=== PATIENT | female | born 1995 | race American Indian/Alaskan Native ===

== ENCOUNTER 2017-03-31 02:59 | Emergency (ER) | payer BC, OTHER ==
[~2017-03-31] VITALS: Ht 160 cm; Wt 55.3 kg
[~2017-03-31 02:59] MED LIST: SODIUM BICARBO650 MG PO; UROCIT-K10 MEQ PO
[2017-03-31] MEDS ORDERED: MULTI VITAMIN1 EACH PO (03:11)
[2017-03-31] MEDS ORDERED: ASPIR-LOW81 MG PO (03:12)
[2017-03-31] MEDS ORDERED: MACROBID 100 M100 MG PO (03:47)
[2017-07-10] MEDS ORDERED: POTASSIUM CITR10 MEQ PO ×2 (17:14→19:56)
[2017-07-10] MEDS ORDERED: PNV PRENATAL P1 EACH PO (17:15)
[2017-07-10] MEDS ORDERED: SODIUM BICARBO650 MG PO ×3 (18:09→19:56)
[2017-07-10] MEDS ORDERED: TYLENOL325 MG PO (18:12)
[2017-07-10] MEDS ORDERED: CYTRA PO (19:31)
== END 2017-03-31 03:55 | disposition home or self-care (01) ==
LOC: ED 02:59
DX: O23.42 Unspecified infection of urinary tract in pregnancy, second trimester (principal); Z88.0 Allergy status to penicillin; Z79.899 Other long term (current) drug therapy; Z79.82 Long term (current) use of aspirin; Z3A.20 20 weeks gestation of pregnancy
CPT/HCPCS: 81001; 87088; 99283

== ENCOUNTER 2017-07-26 21:45 | Inpatient (IN) | payer BC, OTHER ==
[~2017-07-26] VITALS: Ht 160 cm; Wt 64.0 kg
[~2017-07-26 21:45] MED LIST changes: +ASPIR-LOW81 MG PO; +CYTRA PO; +MACROBID 100 M100 MG PO; +MULTI VITAMIN1 EACH PO; +PNV PRENATAL P1 EACH PO; +POTASSIUM CITR10 MEQ PO; +TYLENOL325 MG PO
[2017-07-26] MEDS ORDERED: SODIUM BICARBO650 MG PO (23:27)
[2017-07-26] MEDS ORDERED: K-TAB ER20 MEQ PO (23:27)
--- NOTE | 2017-07-27 12:15 | EKG ---
[facility] [address] [facility] [place] [address] Signed Sinus tachycardia Right superior axis deviation Pulmonary disease pattern Abnormal ECG No previous ECGs available Confirmed by FRANKLYN WADE MD ([id number]) on 07/27/2017 12:14:49 PM Electronically Signed By: FRANKLYN WADE MD 07/27/17 1215 PATIENT NAME: KAYLEEN JENKINS Electrocardiogram DATE OF : [birth year] PHYSICIAN: FRANKLYN WADE MD REPORT #: [id number] REPORT IS CONFIDENTIAL AND NOT TO BE RELEASED WITHOUT AUTHORIZATION
== END 2017-07-28 16:08 | disposition home or self-care (01) | DRG 774 ==
LOC: FBCO 21:45 → FBC 22:14
PROVIDERS: ADMIT Obstetrics & Gynecology
PROC: 10E0XZZ Delivery of Products of Conception, External Approach (ICD-10-PCS; principal; 2017-07-27)
PROC: 0KQM0ZZ Repair Perineum Muscle, Open Approach (ICD-10-PCS; 2017-07-27)
PROC: 00HU33Z Insertion of Infusion Device into Spinal Canal, Percutaneous Approach (ICD-10-PCS; 2017-07-27)
PROC: 3E0R3BZ Introduction of Anesthetic Agent into Spinal Canal, Percutaneous Approach (ICD-10-PCS; 2017-07-27)
DX: O99.89 Other specified diseases and conditions complicating pregnancy, childbirth and the puerperium (principal); O72.1 Other immediate postpartum hemorrhage; D62 Acute posthemorrhagic anemia; N25.89 Other disorders resulting from impaired renal tubular function; M35.00 Sjogren syndrome, unspecified; O76 Abnormality in fetal heart rate and rhythm complicating labor and delivery; O70.1 Second degree perineal laceration during delivery; O90.81 Anemia of the puerperium; Z86.19 Personal history of other infectious and parasitic diseases; Z3A.37 37 weeks gestation of pregnancy; Z37.0 Single live birth
CPT/HCPCS: 01960; 36415; 80053; 85025; 85027; 85384; 85610; 85730; 86850; 86900; 86901; 93005; 93010; J2210; J2590; J3010; J7120

== ENCOUNTER 2017-11-13 09:03 | Inpatient (IN) | payer BC, OTHER ==
[~2017-11-13] VITALS: Ht 160 cm; Wt 51.3 kg
--- OUTSIDE RECORDS SUMMARY | ~2017-11-13 | XMS | Clinical Summary ---
Demographics + + + | Address | [address] | | | [place] [address] | + + + | Home Phone | | + + + | Preferred Language | Unknown | + + + | Marital Status | Unknown | + + + | Buddhism Affiliation | Unknown | + + + | Race | Unknown | + + + | Ethnic Group | Unknown | + + + Author + + + | Author | [facility] | + + + | Organization | [facility] | + + + | Address | Unknown | + + + | Phone | Unavailable | + + + Support + + + + + | Name | Relationship | Address | Phone | + + + + + | Contact,No | ECON | [address] | | | | | [place] | | | | | [phone] | | + + + + + Care Team Providers + +------+ + | Care Supervisor Prep Name | Role | Phone | + +------+ + | Fran Olivo | PP | | + +------+ + Allergies Not on File Current Medications Not on file Active Problems Not on file Social History + +-------+ +--------+------+ | Tobacco Use | Types | Packs/Day | Years | Date | | | | | Used | | + +-------+ +--------+------+ | Never Assessed | | | | | + +-------+ +--------+------+ + + + | Sex Assigned at | Date Recorded | | | | + + + | Not on file | | + + + Plan of Treatment + + + + + | Health Maintenance | Due Date | Last Done | Comments | + + + + + | Vaccine: HPV (1 of 3 | | | | | - Female 3-dose | 7 | | | | series) | | | | + + + + + | Vaccine: | | | | | Dtap/Tdap/Td (1 - | 5 | | | | Tdap) | | | | + + + + + | Cervical Cancer | | | | | Screening (Pap) | 7 | | | + + + + + | Vaccine: Influenza | | | | | (#1) | 8 | | | + + + + + Results Not on filefrom Last 3 Months Insurance + +--------+ +------+-------+ + | Payer | Benefi | Subscriber | Type | Phone | Address | | | t Plan | ID | | | | | | / | | | | | | | Group | | | | | + +--------+ +------+-------+ + | MEDICAID | MEDICA | [id number] | | | [address] | | | ID - | | | | [place], [place] | | | [place] | | | | [phone] | + +--------+ +------+-------+ + | [employer] | YELLOW | [phone] | | | | | PLANS | [place] | | | | | + +--------+ +------+-------+ + + +--------+ +--------+ + + | Guarantor Name | Accoun | Relation to | Date | Phone | Billing Address | | | t Type | Patient | of | | | | | | | | | | + +--------+ +--------+ + + | KAYLEEN JENKINS | Person | Self [birth year] | Home: | [address] [facility] | | [place] | [address] | | 1995 | [phone] | [place] | | | [place] | | | [phone] | [phone] | + +--------+ +--------+ + +"
--- OUTSIDE RECORDS SUMMARY | ~2017-11-13 | XMS | Clinical Summary ---
Demographics + + + | Address | [address] | | | [place] [address] | + + + | Home Phone | | + + + | Preferred Language | Unknown | + + + | Marital Status | Unknown | + + + | Advent Affiliation | Unknown | + + + | Race | Unknown | + + + | Ethnic Group | Unknown | + + + Author + + + | Author | [facility] | | | and [place] | + + + | Organization | [facility] | | | and [place] | + + + | Address | Unknown | + + + | Phone | Unavailable | + + + Care Team Providers + +------+ + | Care Tenant Selector Name | Role | Phone | + +------+ + | Fran Olivo PA-C | PP | | + +------+ + Allergies + + + + + + | Active Allergy | Reactions | Severity | Noted | Comments | | | | | Date | | + + + + + + | Amoxicillin | | | 02/27/19 | | | | | | 16 | | + + + + + + Current Medications + + +-------+---------+------+------+-------+ | Prescription | Sig. | Disp. | Refills | Star | End | Statu | | | | | | t | Date | s | | | | | | Date | | | + + +-------+---------+------+------+-------+ | sodium bicarbonate | Take 650 mg by mouth | | | | | Activ | | 650 mg tablet | 3 times daily. | | | | | e | + + +-------+---------+------+------+-------+ | potassium chloride | Take 20 mEq by mouth | | | | | Activ | | (K-DUR) 20 mEq ER | 2 times daily. | | | | | e | | tablet | | | | | | | + + +-------+---------+------+------+-------+ Active Problems + + + | Problem | Noted Date | + + + | Hypokalemia | 02/27/2015 | + + + | Non-traumatic rhabdomyolysis | 02/27/2015 | + + + | Distal renal tubular acidosis | 02/27/2015 | + + + Social History + +-------+ +--------+------+ | Tobacco [...] | Vaccine: HPV (1 of 3 | 05/20/200 | | | | - Female 3-dose [...] filefrom Last 3 Months Insurance + +--------+ +--------+ +---------+ | Payer | Benefi | Subscriber | Type | Phone | Address | | | t Plan | ID | | | | | | / | | | | | | | Group | | | | | + +--------+ +--------+ +---------+ | PREMERA | PREMER | [id number] | PPO | [phone] | | | | A | 1 | | [phone] | | | | [place]ITA | | | | | | | GE | | | | | | | PRIME | | | | | | | PPO | | | | | + +--------+ +--------+ +---------+ | [employer] | MODA | [id number] | Medica | [phone] | | | MEDICAID HMO | HEALTH | | id | 9821 | | | | MDCD | | | | | | | HMO [place] | | | | | + +--------+ +--------+ +---------+ + +--------+ +--------+ + + | Guarantor Name | Accoun | Relation to | Date | Phone | Billing Address | | | t Type | Patient | of | | | | | | | | | | + +--------+ +--------+ + + | KAYLEEN JENKINS | Person | Self | [birth year] | Home: | [address] | | [place] | [address] | | 1995 | [phone] | [place] [address] | | | [place] | | | [phone] | | + +--------+ +--------+ + +"
--- OUTSIDE RECORDS SUMMARY | ~2017-11-13 | XMS | Clinical Summary ---
Demographics + + + | Address | [address] | | | [place] [address] | + + + | Home Phone | | + + + | Preferred Language | Unknown | + + + | Marital Status | Unknown | + + + | Pentecostal Affiliation | Unknown | + + + | Race | Unknown | + + + | Ethnic Group | Unknown | + + + Author + + + | Author | [facility] | | | and [place] | + + + | Organization | [facility] | | | and [place] | + + + | Address | Unknown | + + + | Phone | Unavailable | + + + Care Team Providers + +------+ + | Care Medical Staff Physician Name | Role | Phone | + [...] +--------+ +---------+ | PREMERA | PREMER | [id number] | PPO | [phone] | | | | A | 1 | | [phone] | | | | HERITA | | | | | | | GE | | | | | | | PRIME | | | | | | | PPO | | | | | + +--------+ +--------+ +---------+ | [employer]AN | MODA | [id number] | Medica | [phone] | | | MEDICAID HMO | HEALTH [...] | 1995 | [phone] | [place] [address] | | | [place] | | | [phone] | | + +--------+ +--------+ + +"
--- OUTSIDE RECORDS SUMMARY | ~2017-11-13 | XMS | Clinical Summary ---
Demographics + + + | Address | [address] | | | [place] [address] | + + + | Home Phone | | + + + | Preferred Language | Unknown | + + + | Marital Status | Unknown | + + + | Protestant Affiliation | Unknown | + + + | Race | Unknown | + + + | Ethnic Group | Unknown | + + + Author + + + | Author | [facility] | + + + | Organization | [facility] | + + + | Address | Unknown | + + + | Phone | Unavailable | + + + Support + + + + + | Name | Relationship | Address | Phone | + + + + + | Contact,No | ECON | [address] | | | | | [place] | | | | | [phone] | | + + + + + Care Team Providers + +------+ + | Care Cbx Operator Name | Role | Phone | + [...] +------+-------+ + | MEDICAID | MEDICA | [id number] | | | [address] | | | ID - | | | | [place], [place] | | | [place] | | | | [phone] | + +--------+ +------+-------+ + | [employer] | YELLOW | [phone] | | | | | PLANS | [...] | [birth year] | Home: | [address] [facility] | | [place] | [address] | | 1995 | [phone] | [place] | | | [place] | | | [phone] | [phone] | + +--------+ +--------+ + +"
--- OUTSIDE RECORDS SUMMARY | ~2017-11-13 | XMS | Clinical Summary ---
Demographics + + + | Address | [address] | | | [place] [address] | + + + | Home Phone | | + + + | Preferred Language | Unknown | + + + | Marital Status | Unknown | + + + | Baptist Affiliation | Unknown | + + + | Race | Unknown | + + + | Ethnic Group | Unknown | + + + Author + + + | Author | [facility] | + + + | Organization | [facility] | + + + | Address | Unknown | + + + | Phone | Unavailable | + + + Support + + + + + | Name | Relationship | Address | Phone | + + + + + | Contact,No | ECON | [address] | | | | | [place] | | | | | [address] | | + + + + + Care Team Providers + +------+ + | Care Instrument Lens Grinder Apprentice Name | Role | Phone | + [...] +------+-------+ + | MEDICAID | MEDICA | [id number] | | | [address] | | | ID - | | | | [place], [place] | | | [place] | | | | [phone] | + +--------+ +------+-------+ + | [facility] | YELLOW | [phone] | | | | | PLANS | [...] | [birth year] | Home: | [address] [facility] | | [place] | [address] | | 1995 | [phone] | [place] | | | [place] | | | [phone] | [phone] | + +--------+ +--------+ + +"
--- OUTSIDE RECORDS SUMMARY | ~2017-11-13 | XMS | Clinical Summary ---
Demographics + + + | Address | [address] | | | [place] [address] | + + + | Home Phone | | + + + | Preferred Language | Unknown | + + + | Marital Status | Unknown | + + + | Hinduism Affiliation | Unknown | + + + | Race | Unknown | + + + | Ethnic Group | Unknown | + + + Author + + + | Author | [facility] | | | and [place] | + + + | Organization | [facility] | | | and [place] | + + + | Address | Unknown | + + + | Phone | Unavailable | + + + Care Team Providers + +------+ + | Care Fretted Instrument Repairer Name | Role | Phone | + [...] +--------+ +---------+ | PREMERA | PREMER | [id number] | PPO | [phone] | | | | A | 1 | | [phone] | | | | HERITA | | | | | | | GE | | | | | | | PRIME | | | | | | | PPO | | | | | + +--------+ +--------+ +---------+ | [employer]AN | MODA | [id number] | Medica | [phone] | | | MEDICAID HMO | HEALTH [...] | 1995 | [phone] | [place] [address] | | | [place] | | | [phone] | | + +--------+ +--------+ + +"
[~2017-11-13 09:03] MED LIST changes: +K-TAB ER20 MEQ PO
[2017-11-13] MEDS ORDERED: POTASSIUM CITR10 MEQ PO (09:33)
[2017-11-13] MEDS ORDERED: IRON325 M1 PO (09:34)
--- NOTE | 2017-11-14 13:48 | CONS ---
[facility] [address] [place], [place] [address] Signed DATE OF CONSULTATION: 11/13/2017 PROBLEM: Profound hypokalemia related to renal tubular acidosis related to Sjogren syndrome, need for central venous access for continued potassium replacement. HISTORY: This 22-year-old [place] woman, who was admitted by Dr. Corrigan with profound hypokalemia. She is feeling extremely weak, unable to walk and so forth. She has had episodes of hypokalemia in the past. She was first treated several years ago when diagnosed with Sjogren syndrome and renal tubular acidosis. Evaluation in the emergency room showed her to be profoundly acidotic with a pH of 7.16, bicarb of 21.9, and a serum potassium of 1.4. Her creatinine is 1.19, magnesium 3.0. Attempts at potassium repletion during the course of the day have been inadequate in their effect. Her most recent potassium was at 2105 hours, potassium now 1.9. A central venous catheter is requested for more liberal intravenous infusion of potassium. Notably her phosphorus is less than 1. Her magnesium is now 2.4. PHYSICAL EXAMINATION: GENERAL: A relatively thin [place] woman, who has a long black hair. Trachea is midline. CHEST: Shows normal respiratory excursion without tachypnea. She does not look ill particularly. HEART: Regular. ABDOMEN: Nondistended. EXTREMITIES: No clubbing, cyanosis, or edema. ASSESSMENT: She has profound hypokalemia, for which potassium repletion is underway as well as phosphate repletion. Central venous access catheter may be beneficial for that purpose. I discussed with the patient the risks of bleeding, infection, pneumothorax, and other unforeseen complications related to placement of a central venous catheter. I will attempt an internal jugular approach and found unsuccessful subclavian approach. She understands the risks and wished to proceed. Vickie Rowan MD Electronically Signed By: VICKIE ROWAN MD 11/14/17 1348 PATIENT NAME: KAYELEN JENKINS CONSULTATION DATE OF : [birth year] REPORT #: [id number] PHYSICIAN: VICKIE ROWAN MD PCP: DONALD NIELSON REPORT IS CONFIDENTIAL AND NOT TO BE RELEASED WITHOUT AUTHORIZATION [facility] [address] [place] [address] [place], [place] [address] Signed /MADELINE /[id number] cc: Dr. Shekhar Nielson Copies: ~ Electronically Signed By: VICKIE ROWAN MD 11/14/17 1348 PATIENT NAME: KAYLEEN JENKINS CONSULTATION DATE OF : [birth year] REPORT #: [id number] PHYSICIAN: VICKIE ROWAN MD PCP: DONALD NIELSON REPORT IS CONFIDENTIAL AND NOT TO BE RELEASED WITHOUT AUTHORIZATION
--- NOTE | 2017-11-14 13:48 | OR ---
[facility] [address] [place], [place] [address] Signed DATE OF OPERATION: 11/13/2017 SURGEON: Vickie Rowan MD PREOPERATIVE DIAGNOSIS: Profound hypokalemia, renal tubular acidosis related to Sjogren syndrome. POSTOPERATIVE DIAGNOSIS: Profound hypokalemia, renal tubular acidosis related to Sjogren syndrome. PROCEDURES PERFORMED: Attempted right internal jugular central venous catheterization with subsequent right subclavian central venous catheterization (arrow blue tip triple-lumen catheter). ANESTHESIA: 1% lidocaine. INDICATIONS: This 22-year-old Serbian woman has profound renal tubular acidosis and presented with a potassium of only 1.2 earlier. She has undergone peripheral potassium repletion, potassium now 1.9. Her magnesium is normal ranging from 3.0-2.4. She is profoundly hypophosphatemic as well. The risks of bleeding, infection, pneumothorax, and other unforeseen complications related to placement of a central venous catheter have been reviewed with her. She understands and wished to proceed. FINDINGS: Attempted right internal jugular catheterization was unsuccessful and arterial puncture was noted with bright blood. Pressure was applied to the site, though she did develop a small hematoma. Placement through the right subclavian vein was without difficulty showing dark nonpulsatile blood and passage of the triple-lumen catheter without issue and aspiration showing dark nonpulsatile bleeding. A postprocedure chest x-ray is pending. DESCRIPTION OF PROCEDURE: In the supine position with the patient's head turned to the left, the right neck and upper torso were prepared with chlorhexidine solution and draped sterilely. A 1% lidocaine was injected inferior to the crossing vein of the neck for local anesthesia. Using the Seldinger technique and sterile technique including gloves and mask and sterile gown, access to the right neck was undertaken. Noted, right blood was not particularly pulsatile. The needle was removed with high probability and this Electronically Signed By: VICKIE ROWAN MD 11/14/17 1348 PATIENT NAME: KAYLEEN JENKINS OPERATIVE REPORT DATE OF : [birth year] REPORT #: [id number] PHYSICIAN: VICKIE ROWAN MD PCP: DONALD NIELSON REPORT IS CONFIDENTIAL AND NOT TO BE RELEASED WITHOUT AUTHORIZATION [facility] [address] [place], [place] [address] Signed represented arterial puncture. Pressure was applied to the site. There was a bit of swelling, small hematoma formation. Further attempts were abandoned. Local anesthetic was injected in the right infraclavicular space and using this same technique, the right subclavian vein easily accessed showing dark nonpulsatile bleeding. A flexible J-wire was passed down the needle and needle was removed. The site was incised with an #11 blade and dilated with enclosed blue dilator and previously inspected Arrow blue tip triple-lumen catheter passed over the wire. Aspiration on the distal port showed dark nonpulsatile blood. The catheter was withdrawn a few centimeters given her body size and so forth and an enclosed collar device applied to the catheter and secured to the skin with the enclosed Baldev needle and silk suture. It was additionally secured. An anti-infective disk was applied as was a SorbaView dressing. A postprocedure chest x-ray was anticipated properly. Re-examination of the neck showed no expanding hematoma, but there is some swelling. Vickie Rowan MD JM/MODL /[id number] cc: Dr. Corrigan Ms. Seiders Copies: ~ Electronically Signed By: VICKIE ROWAN MD 11/14/17 1348 PATIENT NAME: KAYLEEN JENKINS OPERATIVE REPORT DATE OF : [birth year] REPORT #: [id number] PHYSICIAN: VICKIE ROWAN MD PCP: DONALD NIELSON REPORT IS CONFIDENTIAL AND NOT TO BE RELEASED WITHOUT AUTHORIZATION
--- NOTE | 2017-11-14 14:33 | EKG ---
[facility] [address] [facility] [place] [address] Signed Sinus rhythm with 1st degree AV block Right superior axis deviation Nonspecific T wave abnormality Prolonged QT Abnormal ECG When compared with ECG of 27-JUL-2017 07:29, CA interval has increased QRS duration has increased Nonspecific T wave abnormality no longer evident in Inferior leads Nonspecific T wave abnormality now evident in Anterolateral leads Confirmed by ZAHRAA CLANCY DO ([id number]) on 11/14/2017 2:33:08 PM Electronically Signed By: ZAHRAA CLANCY DO 11/14/17 1433 PATIENT NAME: KAYLEEN JENKINS Electrocardiogram DATE OF : [birth year] PHYSICIAN: ZAHRAA CLANCY DO REPORT #: [id number] REPORT IS CONFIDENTIAL AND NOT TO BE RELEASED WITHOUT AUTHORIZATION
[2017-11-16] MEDS ORDERED: KLOR-CON M2020 MEQ PO (08:28)
[2017-11-16] MEDS ORDERED: SODIUM BICARBO650 MG PO (08:31)
== END 2017-11-16 10:35 | disposition home or self-care (01) | DRG 641 ==
LOC: ED 09:03 → CCU 09:04 → MS 11-15 12:45
PROVIDERS: ADMIT Student in an Organized Health Care Education/Training Program
PROC: 02HV33Z Insertion of Infusion Device into Superior Vena Cava, Percutaneous Approach (ICD-10-PCS; principal; 2017-11-13)
DX: E87.6 Hypokalemia (principal); M35.04 Sjogren syndrome with tubulo-interstitial nephropathy
CPT/HCPCS: 36415; 36600; 70450; 71045; 80048; 80076; 81001; 82040; 82330; 82803; 82977; 83605; 83615; 83735; 84100; 84703; 85025; 87088; 93005; 93010; 96361; 96374; 96375; 99285; J0610; J1650; J2405; J3480; J7030; J7060; J7070; J7120

== ENCOUNTER 2019-03-18 11:49 | Emergency (ER) | payer BC, OTHER ==
[~2019-03-18] VITALS: Ht 160 cm; Wt 51.3 kg
[~2019-03-18 11:49] MED LIST changes: +IRON325 M1 PO; +KLOR-CON M2020 MEQ PO
== END 2019-03-18 14:55 | disposition home or self-care (01) ==
LOC: ED 11:49
DX: S61.512A Laceration without foreign body of left wrist, initial encounter (principal); F32.9 Major depressive disorder, single episode, unspecified; X78.8XXA Intentional self-harm by other sharp object, initial encounter; D64.9 Anemia, unspecified; Z88.0 Allergy status to penicillin; Z79.899 Other long term (current) drug therapy
CPT/HCPCS: 81001; 99284

== ENCOUNTER 2020-09-07 17:11 | Emergency (ER) | payer BC ==
[~2020-09-07] VITALS: Ht 160 cm; Wt 56.3 kg
--- OUTSIDE RECORDS SUMMARY | 2020-09-07 17:18 | XMS ---
PreManage Notification: KAYLEEN JENKINS Security [address] Administrator Events No recent Security Events currently on file CRITERIA MET - [facility] - 2 Visits in 30 Days CARE PROVIDERS There are no care providers on record at this time. Mer has no Care Guidelines for this patient. Fay VISIT COUNT (12 MO.) [facility] NOTE: Visits indicate total known visits. ED/C VISIT TRACKING (12 MO.) [facility]07/2020 17:[facility] [place] [facility] COMPLAINT: - FLANK PAIN 09/07/2020 11:14 [facility] [place] TYPE: Emergency COMPLAINT: - L FLANK PAIN, LOWER ABD PAIN INPATIENT VISIT TRACKING (12 MO.) No inpatient visits to display in this time frame [id number]
[2020-09-07] MEDS ORDERED: CEPHALEXIN500 MG PO (21:14)
== END 2020-09-07 21:36 | disposition home or self-care (01) ==
LOC: ED 17:11
DX: N12 Tubulo-interstitial nephritis, not specified as acute or chronic (principal); N39.0 Urinary tract infection, site not specified; N20.0 Calculus of kidney; D64.9 Anemia, unspecified; Z88.0 Allergy status to penicillin; Z79.899 Other long term (current) drug therapy
CPT/HCPCS: 76770; 80053; 81001; 83690; 84703; 85025; 87088; 99284-25; J0696; J1885; J7030

== ENCOUNTER 2022-04-12 16:51 | Emergency (ER) | payer BC ==
[~2022-04-12] VITALS: Ht 160 cm; Wt 55.4 kg
[~2022-04-12 16:51] MED LIST changes: +CEPHALEXIN500 MG PO
== END 2022-04-12 18:17 | disposition home or self-care (01) ==
LOC: ED 16:51
DX: R09.1 Pleurisy (principal)
CPT/HCPCS: 71046; 99284-25

== ENCOUNTER 2024-04-22 14:58 | Emergency (ER) | payer BC, OTHER ==
[~2024-04-22] VITALS: Ht 157.5 cm; Wt 63.6 kg
[~2024-04-22 14:58] MED LIST changes: +FERROUS SU220 MG/52 PO; +HYDROXYCHLOROQ200 MG PO; +POTASSIUM CHLO10 ME2 PO; +PREDNISONE20 MG PO; +SODIUM BICARBO325 MG PO; +VITAMIN D-40010 MCG PO; +ZITHROMAX250 MG PO
--- OUTSIDE RECORDS SUMMARY | 2024-04-22 15:05 | XMS ---
PreManage Notification: KAYLEEN JENKINS Security Par[employer] Supervisor Events No recent Security Events currently on file CRITERIA MET - Group Notification CARE PROVIDERS There are no care providers on record at this time. Mer has no Care Guidelines for this patient. Fay VISIT COUNT (12 MO.) 5 [facility] TOTAL 5 NOTE: Visits indicate total known visits. ED/C VISIT TRACKING (12 MO.) 04/22/2024 14:58 [facility] [place] TYPE[facility] Emergency COMPLAINT: - TROUBLE BREATHING 16 WEEKS 03/18/2024 15:19 [facility] [place] TYPE: Emergency COMPLAINT: - FINGER ISSUE 08/27/2023 22:33 [facility] [place] TYPE: Emergency COMPLAINT: - CHEST PAIN DIAGNOSES: - Other disorders of lung - Other service aide (current) drug therapy - Pleurodynia 07/20/2023 01:52 [facility] [place] TYPE: Emergency COMPLAINT: - CHEST PAIN DIAGNOSES: - Anemia, unspecified - Chest pain, unspecified - Other service aide (current) drug therapy - Pleurisy - Pneumonia, unspecified organism 07/19/2023 15:13 [facility] [place] TYPE: Emergency COMPLAINT: - UPPER BACK/CHEST PAIN DIAGNOSES: - Other chest pain INPATIENT VISIT TRACKING (12 MO.) No inpatient visits to display in this time frame [email or web address]
[2024-04-22] MEDS ORDERED: ALBUTEROL/IPRATROPIUM 3 ML NEB INH ONE (15:15)
[2024-04-22] MEDS ORDERED: ADVAIR HFA 115-12 GM (15:28)
[2024-04-22 17:27] VITALS: BP 110/66
== END 2024-04-22 17:27 | disposition home or self-care (01) ==
LOC: ED 14:58
DX: O99.512 Diseases of the respiratory system complicating pregnancy, second trimester (principal); J45.909 Unspecified asthma, uncomplicated; O99.891 Other specified diseases and conditions complicating pregnancy; M35.00 Sjogren syndrome, unspecified; Z3A.16 16 weeks gestation of pregnancy; Z79.52 Long term (current) use of systemic steroids; Z79.51 Long term (current) use of inhaled steroids; Z79.899 Other long term (current) drug therapy
CPT/HCPCS: 94640; 99284

== ENCOUNTER 2025-01-22 04:42 | Emergency (ER) | payer BC, OTHER ==
[~2025-01-22] VITALS: Ht 152.4 cm; Wt 67.8 kg
[~2025-01-22 04:42] MED LIST changes: +ADVAIR HFA 115-12 GM
[2025-01-22 05:33] LABS: BASOPHILS 0.1 % (0.1-1.2); EOSINOPHILS 5.8 % (0.7-5.8); LYMPHOCYTES 26.6 % (19.3-51.7); MCH 25.7 PG (25.6-32.2); MCHC 31.9 g/dL (32.2-35.5); MCV 80.4 fL (79.4-94.8); MONOCYTES 6.1 % (4.7-12.5); NEUTROPHILS 61.1 % (34.0-71.1); RBC 4.09 M/uL (3.93-5.22)
[2025-01-22 06:05] LABS: ALT (SGPT) 26.0 U/L (14-59); AST (SGOT) 19.0 U/L (15-37); GLOMERULAR FILTRATION RATE,EST 71.0 mL/min (>60); PROTEIN, TOTAL 8.2 g/dL (6.4-8.2); UREA NITROGEN 15.0 mg/dL (7-18)
[2025-01-22 06:40] VITALS: BP 102/74
--- OUTSIDE RECORDS SUMMARY | 2025-01-22 06:46 | XMS ---
PreManage Notification: KAYLEEN JENKINS Security Junior Project Coordinator Events No recent Security Events currently on file CRITERIA MET - Group Notification [facility] [facility] \F\ <UNAVAIL> PHONE: [phone] Mer has no Care Guidelines for this patient. EYovani VISIT COUNT (12 MO.) [address] [facility] TOTAL 3 NOTE: Visits indicate total known visits. ED/UCC VISIT TRACKING (12 MO.) 01/22/2025 04:43 [facility] [place] TYPE: Emergency COMPLAINT: - WEAKNESS 04/22/2024 14:58 [facility] [place] TYPE: Emergency COMPLAINT: - TROUBLE BREATHING 16 WEEKS DIAGNOSES: - 16 weeks gestation of - Diseases of the respiratory system complicating , second trimester - senior care (current) use of inhaled steroids - senior care (current) use of systemic steroids - Other group home (current) drug therapy - Other specified diseases and conditions complicating - Shortness of breath - Sjogren syndrome, unspecified - Unspecified asthma, uncomplicated 03/18/2024 15:19 [facility] [place] TYPE: Emergency COMPLAINT: - FINGER ISSUE INPATIENT VISIT TRACKING (12 MO.) 09/12/2024 05:[address] [facility] [place] TYPE: [facility] COMPLAINT: - LABOR DIAGNOSES: - 36 weeks gestation of - Diseases of the respiratory system complicating childbirth - Encounter for full-term uncomplicated delivery - First degree perineal laceration during delivery - Maternal care for abnormalities of the heart rate or rhythm, third trimester, not applicable or unspecified - Other specified diseases and conditions complicating childbirth - Single live - Sjogren syndrome with lung involvement - Sjogren syndrome with tubulo-interstitial nephropathy - Unspecified asthma, uncomplicated [email or web address]
== END 2025-01-22 06:40 | disposition home or self-care (01) ==
LOC: ED 04:42
PROVIDERS: Family Medicine
DX: R53.83 Other fatigue (principal); Z87.891 Personal history of nicotine dependence; Z87.442 Personal history of urinary calculi
CPT/HCPCS: 36415; 80053; 83735; 85025; 99284